=== PATIENT | male | born 1985 ===

== ENCOUNTER 2021-12-27 21:00 | Inpatient (IN) | payer MEDICAID, OTHER ==
[2021-12-27] MEDS ORDERED: MAG HYDROX/AL HYDROX/SIMETH 30 ML CUP PO PRN (21:09)
[2021-12-27] MEDS ORDERED: MAGNESIUM HYDROXIDE 2,400 MG/10 ML CUP PO PRN (21:09)
[2021-12-27] MEDS ORDERED: OLANZapine 5 MG TAB PO PRN (21:22)
[2021-12-27] MEDS ORDERED: OLANZapine 10 MG VIAL IM PRN (21:22)
[2021-12-28] MEDS ORDERED: hydrOXYzine HCL 50 MG/ML 1 ML VIAL IM PRN
--- NOTE | 2021-12-28 03:51 | P.CONS ---
History of Present Illness - Reason for Consult Consult date: 12/28/21 - History of Present Illness The patient is a 36-year-old male with a PMH of hypertension who had initially presented to [facility] with complaints of depression and suicidal ideation. The patient was subsequently transferred to [facility] where he was seen at the mental health unit. The patient reports that he feels better at the time of interview. He denied any physical complaints. He denied experiencing chest discomfort, shortness of breath, fever, chills, cough, nausea, vomiting, abdominal diarrhea. He reports recreational marijuana use. Denied any additional illicit substance use. Denied tobacco or alcohol use. Review of systems: Pertinent positives and negatives as discussed in HPI, a complete review of systems was performed and all other systems are negative. Physical examination: General: non toxic, no distress, appears at stated age, normal weight Derm: no unusual rashes/lesions, no unusual ecchymoses, warm, dry Head: atraumatic, normocephalic, symmetric Eyes: EOMI, no lid lag, anicteric sclera ENT: Nose and ears atraumatic, no thrush, no pharyngeal erythema Neck: trachea midline, supple Mouth: no lip lesion, mucus membranes moist Cardiovascular: S1S2 reg, no murmur, no edema Lungs: CTA bilateral, no rhonchi, no rales , no accessory muscle use Abdominal: soft, nontender to palpation, no guarding Ext: no gross muscle atrophy, no contractures, Neuro: No gross focal neuro deficits noted Psych: Alert, oriented, appropriate affect Assessment/plan Hypertension -Continue with home meds Marijuana abuse -Advised on importance of cessation Depression -As per psychiatry Thank you for allowing us to participate in the care of this patient. We will follow peripherally. Do not hesitate to contact us with questions. Someone can be reached from the [facility] hospitalist group at all hours of the day at [phone]. Past Medical History History of Any Multi-Drug Resistant Organisms: None Reported Past Psychological History: Bipolar, Schizophrenia Smoking Status: Vaper Past Alcohol Use History: None Reported Past Drug Use History: None Reported - Past Family History Father Family Medical History: Hypertension Medications and Allergies Allergies Allergy/AdvReac Type Severity Reaction Status Date / Time No Known Allergies Allergy Verified 12/27/21 21:06 Physical Exam Vitals: Vital Signs Temp Pulse Resp BP Pulse Ox 12/28/21 02:32 97.4 F L 82 18 133/86 99 12/28/21 02:26 97.4 F L 82 18 133/86 99 Intake and Output 12/27/21 12/27/21 12/28/21 14:59 22:59 06:59 Other: Weight 130 kg 104.9 kg
[2021-12-28 04:25] LABS: ALT 62 U/L (4-49); AST 64 U/L (17-59); African American GFR (CKD) >90 (>60 ml/min/1.73 sqM); Albumin 4.7 g/dL (3.5-5.0); Alkaline Phosphatase 93 U/L (38-126); Anion Gap 12 mmol/L; Basophils # (A) 0.1 k/uL (0-0.2); Basophils % (A) 1 %; Bilirubin,Unconjugated 0.6 mg/dL (0.0-1.1); Blood Urea Nitrogen 17 mg/dL (9-20); Calcium 9.5 mg/dL (8.4-10.2); Carbon Dioxide 25 mmol/L (22-30); Chloride 99 mmol/L (98-107); Eosinophils # (A) 0.2 k/uL (0-0.7); Eosinophils % (A) 2 %; Glucose 122 mg/dL (74-99); HCT 46.1 % (39.0-53.0); HGB 15.2 gm/dL (13.0-17.5); Lymphocytes # (A) 3.2 k/uL (1.0-4.8); Lymphocytes % (A) 32 %; MCH 29.7 pg (25.0-35.0); MCHC 32.9 g/dL (31.0-37.0); MCV 90.2 fL (80.0-100.0); Mean Platelet Volume 9.7; Monocytes # (A) 0.7 k/uL (0-1.0); Monocytes % (A) 7 %; Neutrophils # (A) 5.6 k/uL (1.3-7.7); Neutrophils % (A) 55 %; Non-African American GFR(CKD) >90 (>60 ml/min/1.73 sqM); Platelet Count 180 k/uL (150-450); Potassium 4.3 mmol/L (3.5-5.1); RBC 5.11 m/uL (4.30-5.90); RDW 13.4 % (11.5-15.5); Sodium 136 mmol/L (137-145); Total Bilirubin 0.6 mg/dL (0.2-1.3); Total Protein 7.4 g/dL (6.3-8.2); WBC 10.2 k/uL (3.8-10.6)
[2021-12-28 07:48] LABS: Glucose,Whole Blood 120 mg/dL (70-110)
[2021-12-28] MEDS: lisinopriL 5 MG TAB PO SCH (08:25)
[2021-12-28] MEDS: METOPROLOL SUCCINATE (ER) 100 MG TAB.ER.24H PO SCH ×2 (08:25→20:05)
[2021-12-28] MEDS: hydrOXYzine pamoate 25 MG CAP PO PRN ×3 (08:28→22:15)
[2021-12-28] MEDS: NICOTINE 14MG/24HR PATCH TRANSDERM SCH (08:29)
[2021-12-28] MEDS: ACETAMINOPHEN TAB 325 MG TAB PO PRN ×3 (08:31→23:48)
[2021-12-28] MEDS: metFORMIN 500 MG TAB PO SCH ×2 (08:57→16:49)
[2021-12-28 09:28] LABS: Chol/HDL Ratio 5.62 Ratio; LDL Cholesterol,Calculated 91.6 mg/dL (0.0-131.0)
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
[2021-12-28] MEDS: NICOTINE GUM (POLACRILEX) 2 MG GUM BUCCAL PRN ×3 (14:48→23:51)
[2021-12-28 17:56] LABS: Glucose,Whole Blood 124 mg/dL (70-110)
[2021-12-28] MEDS: VALPROIC ACID ORAL SOLN 250 MG/5 ML CUP PO SCH (20:05)
[2021-12-28 20:13] LABS: Glucose,Whole Blood 147 mg/dL (70-110)
[2021-12-28] MEDS ORDERED: QUEtiapine 200 MG TAB PO SCH (21:00)
[2021-12-28] MEDS ORDERED: OLANZapine 5 MG TAB PO SCH (21:00)
[2021-12-28] MEDS ORDERED: VALPROIC ACID ORAL SOLN 250 MG/5 ML CUP PO SCH (21:00)
[2021-12-28] MEDS: QUEtiapine 100 MG TAB PO SCH (21:02)
[2021-12-29] MEDS: NICOTINE GUM (POLACRILEX) 2 MG GUM BUCCAL PRN ×4 (05:00→21:45)
[2021-12-29] MEDS: hydrOXYzine pamoate 25 MG CAP PO PRN (05:00)
[2021-12-29] MEDS: ACETAMINOPHEN TAB 325 MG TAB PO PRN ×2 (05:00→16:40)
[2021-12-29 07:47] LABS: Glucose,Whole Blood 135 mg/dL (70-110)
[2021-12-29] MEDS: METOPROLOL SUCCINATE (ER) 100 MG TAB.ER.24H PO SCH ×2 (08:28→21:50)
[2021-12-29] MEDS: lisinopriL 5 MG TAB PO SCH (08:28)
[2021-12-29] MEDS: metFORMIN 500 MG TAB PO SCH ×2 (08:28→16:34)
[2021-12-29] MEDS: NICOTINE 14MG/24HR PATCH TRANSDERM SCH ×2 (09:06→09:59)
[2021-12-29] MEDS ORDERED: HALOPERIDOL LACTATE 5 MG/ML 1 ML VIAL IM STA (09:49)
[2021-12-29] MEDS ORDERED: LORazepam 2 MG/ML INJ IM STA (09:50)
[2021-12-29 10:48] LABS: Glucose,Whole Blood 113 mg/dL (70-110)
[2021-12-29] MEDS: LORazepam 1 MG TAB PO PRN (16:34)
[2021-12-29] MEDS: haloperidoL 5 MG TAB PO PRN (16:34)
--- NOTE | 2021-12-29 16:50 | P.PN ---
Progress Note - Text Progress Note Date: 12/29/21 Interval History: Patient was seen on the milieu. He is noted to be restless and following this provider. He was noted by staff to be agitated earlier this morning. He was demanding discharge yet the next minute he was open to being on Haldol when necessary. Patient is grandiose and reports that he has 33 degrees. He took only Seroquel 100 mg last night but was open to receiving Haldol today. Afterwards, he was noted to be somewhat calmer. He reports good appetite and poor sleep. Mental Status Exam: General Appearance: Patient appears to be stated age is alert difficult to redirect Behavior: Restless, agitated Speech: Pressured Mood/Affect: Mood is elevated; affect mood congruent Suicidality/Homicidality: Patient denies having any suicidal or homicidal ideation intent or plan. Perceptions: Patient is denying any auditory or visual hallucinations today. Though content/process: Tangential, grandiose Memory and concentration: Poor concentration. Memory is difficult to assess secondary to his davida Judgment and insight: Poor Assessment Schizoaffective disorder, bipolar type Cannabis use disorder Tobacco use disorder Opiate use disorder, in remission Plan: -Patient is admitted under voluntary status to MHU for stabilization of psychiatric symptoms and safety. Patient signed adult voluntary form and medication consent and is placed in patient's chart. -Continue Seroquel and Depakote. Will not increase due to elevated AST and ALT -Zyprexa and Vistaril PRN changed to Haldol and Ativan for agitation/aggression as patient is more agreeable to being on these -Of note, patient took a room number sign (which is a risk) and gave it to another patient. Staff and security searched all rooms and confiscated risky items as deemed appropriate. Patient placed on 1:1 during any activities and not to be given any sharp objects otherwise (diet also changed accordingly) -Motivational interviewing -Patient was informed of the risks, benefits and side effects of the medication and patient verbally consented to taking the medications. Patient signed med consent form and was placed in chart. -Internal Medicine consult to perform medical evaluation and physical. -NRT - nicotine patch -SW on board for discharge planning. Encourage patient to participate in groups to work on coping skills.
[2021-12-29 17:30] LABS: Glucose,Whole Blood 139 mg/dL (70-110)
[2021-12-29 20:03] LABS: Glucose,Whole Blood 166 mg/dL (70-110)
[2021-12-29] MEDS: VALPROIC ACID ORAL SOLN 250 MG/5 ML CUP PO SCH (21:42)
[2021-12-29] MEDS: QUEtiapine 100 MG TAB PO SCH (21:43)
[2021-12-30] MEDS: NICOTINE 14MG/24HR PATCH TRANSDERM SCH (04:37)
[2021-12-30] MEDS: NICOTINE GUM (POLACRILEX) 2 MG GUM BUCCAL PRN ×4 (04:37→19:28)
[2021-12-30] MEDS: LORazepam 1 MG TAB PO PRN ×2 (04:37→22:19)
[2021-12-30] MEDS: ACETAMINOPHEN TAB 325 MG TAB PO PRN ×3 (04:39→19:28)
[2021-12-30] MEDS: METOPROLOL SUCCINATE (ER) 100 MG TAB.ER.24H PO SCH ×2 (08:53→21:06)
[2021-12-30] MEDS: lisinopriL 5 MG TAB PO SCH (08:53)
[2021-12-30] MEDS: metFORMIN 500 MG TAB PO SCH ×2 (08:53→17:36)
--- NOTE | 2021-12-30 12:29 | P.PN ---
Progress Note - Text Progress Note Date: 12/30/21 Interval History: Patient was seen in the interview room. He is noted to be better hygiene and less tangential today. He reports taking his medications as directed and having slept 3-1/2 hours last night. Staff has also noticed him to be sleeping during the day yesterday. He states that he has been feeling better as a result. He was wondering if his medication could be increased. He requests a morning dose of Seroquel and morning dose of Depakote. Discussed that we need to get his rihcard er labs again and he is agreeable with this. Patient is also less grandiose and expresses understanding of the medication plan. He denies suicidal and homicidal ideation. He denies auditory and visual hallucinations. Mental Status Exam: General Appearance: Patient appears to be stated age is alert Behavior: Calmer, not restless Speech: Hyperverbal Mood/Affect: Mood is mildly elevated; affect mood congruent Suicidality/Homicidality: Patient denies having any suicidal or homicidal ideation intent or plan. Perceptions: Patient is denying any auditory or visual hallucinations today. Though content/process: Circumstantial Memory and concentration: Poor concentration. Memory is difficult to assess secondary to his davida Judgment and insight: Fair and improving Assessment Schizoaffective disorder, bipolar type Cannabis use disorder Tobacco use disorder Opiate use disorder, in remission Plan: -Patient is admitted under voluntary status to MHU for stabilization of psychiatric symptoms and safety. Patient signed adult voluntary form and medication consent and is placed in patient's chart. -Increase Seroquel to 100 mg qAM and continue 300 mg qHS -Will order liver panel and continue Depakote. -Zyprexa and Vistaril PRN changed to Haldol and Ativan for agitation/aggression as patient is more agreeable to being on these -Of note, on 12/29/21: atient took a room number sign (which is a risk) and gave it to another patient. Staff and security searched all rooms and confiscated risky items as deemed appropriate. Patient placed on 1:1 during any activities and not to be given any sharp objects otherwise (diet also changed accordingly) -Motivational interviewing -Patient was informed of the risks, benefits and side effects of the medication and patient verbally consented to taking the medications. Patient signed med consent form and was placed in chart. -Internal Medicine consult to perform medical evaluation and physical. -NRT - nicotine patch -SW on board for discharge planning. Encourage patient to participate in groups to work on coping skills.
[2021-12-30] MEDS: QUEtiapine 100 MG TAB PO SCH ×2 (12:34→21:06)
[2021-12-30 12:44] LABS: Glucose,Whole Blood 100 mg/dL (70-110)
[2021-12-30 13:34] LABS: Albumin 4.8 g/dL (3.5-5.0); Bilirubin, Delta 0.1 mg/dL (0.0-0.2); Bilirubin,Unconjugated 0.5 mg/dL (0.0-1.1); Total Bilirubin 0.6 mg/dL (0.2-1.3); Total Protein 7.4 g/dL (6.3-8.2)
[2021-12-30] MEDS: HALOPERIDOL LACTATE 5 MG/ML 1 ML VIAL IM PRN (14:23)
[2021-12-30] MEDS: LORazepam 2 MG/ML INJ IM PRN (14:24)
[2021-12-30 17:42] LABS: Glucose,Whole Blood 151 mg/dL (70-110)
[2021-12-30 20:03] LABS: Glucose,Whole Blood 112 mg/dL (70-110)
[2021-12-30] MEDS: VALPROIC ACID ORAL SOLN 250 MG/5 ML CUP PO SCH (21:07)
[2021-12-30] MEDS: haloperidoL 5 MG TAB PO PRN (22:19)
[2021-12-31] MEDS: ACETAMINOPHEN TAB 325 MG TAB PO PRN ×4 (03:47→20:06)
[2021-12-31] MEDS: NICOTINE GUM (POLACRILEX) 2 MG GUM BUCCAL PRN ×4 (03:48→20:07)
[2021-12-31] MEDS: metFORMIN 500 MG TAB PO SCH ×2 (08:01→17:38)
[2021-12-31] MEDS: HALOPERIDOL LACTATE 5 MG/ML 1 ML VIAL IM PRN (08:47)
[2021-12-31] MEDS: LORazepam 2 MG/ML INJ IM PRN (08:47)
[2021-12-31] MEDS: METOPROLOL SUCCINATE (ER) 100 MG TAB.ER.24H PO SCH ×2 (09:06→20:07)
[2021-12-31] MEDS: QUEtiapine 100 MG TAB PO SCH ×2 (09:06→20:06)
[2021-12-31] MEDS: lisinopriL 5 MG TAB PO SCH (09:07)
[2021-12-31] MEDS: NICOTINE 14MG/24HR PATCH TRANSDERM SCH (09:07)
[2021-12-31] MEDS ORDERED: chlorproMAZINE 25 MG TAB PO PRN (09:33)
[2021-12-31] MEDS ORDERED: chlorproMAZINE 25 MG/ML 1 ML AMP IM PRN (11:26)
--- NOTE | 2021-12-31 11:29 | P.PN ---
Progress Note - Text Progress Note Date: 12/31/21 Interval History: Patient was seen wandering the hallways and was directable and agreeable to speak with technical publications writer in the office. The patient has had episodes of agitation while on the unit has been quite oppositional with staff. He did require the administration of when necessary medications due to agitated behavior including punching his door. Despite his behaviors, the patient has not displayed any other manic or psychotic symptoms. He is currently not reporting any delusional thought content. He is denying any auditory or visual hallucinations. He reports no suicidal or homicidal ideation, intention, and/or plan. He reports that he only wants to take the medications when he wants it and how he wants to take them. He otherwise has been in adherent with his medications. He is agreeable with increasing his Depakote as well as Seroquel. He is not reporting any significant side effects of his medications. Mental Status Exam: General Appearance: Patient appears to be stated age is alert, directable, and cooperative. Behavior: Patient is calmly seated without any agitated behavior. Speech: Patient's speech is fluent and nonpressured. Mood/Affect: Mood is "feeling really good." Affect is congruent is expansive. Suicidality/Homicidality: Patient denies having any suicidal or homicidal ideation intent or plan. Perceptions: Patient denies any visual hallucinations and denies any auditory hallucinations Though content/process: There is no evidence of any delusional thought content and thought process is linear and goal-directed. Oppositional. Narcissistic. Memory and concentration: AOX3, grossly intact for the purposes of this session Judgment and insight: Poor Vital Signs Temp 97.5 F L 12/31/21 03:53 Pulse 81 12/31/21 03:53 Resp 18 12/31/21 03:53 BP 123/75 12/31/21 03:53 Pulse Ox 99 12/30/21 04:37 FiO2 Intake & Output 12/30/21 12/31/21 12/31/21 18:59 06:59 18:59 Weight 104.8 kg Laboratory Results - Last 24 Hours 12/30/21 12/30/21 12/30/21 12:39 13:00 17:39 POC Glucose (mg/dL) 100 151 H POC Glu Tomato Grader ID Portia Brooke Desiree Total Bilirubin 0.6 Conjugated Bilirubin 0.0 Unconjugated Bilirubin 0.5 Delta Bilirubin 0.1 AST 56 ALT 53 H Alkaline Phosphatase 97 Total Protein 7.4 Albumin 4.8 12/30/21 20:02 POC Glucose (mg/dL) 112 H POC Glu Tomato Grader ID Hemant Patten Total Bilirubin Conjugated Bilirubin Unconjugated Bilirubin Delta Bilirubin AST ALT Alkaline Phosphatase Total Protein Albumin Assessment Schizoaffective disorder, bipolar type Cannabis use disorder Tobacco use disorder Opiate use disorder, in remission Plan: -Patient continues to meet criteria for inpatient psychiatric admission for symp jammie stabilization and safety. Patient has signed adult voluntary form and medication consent and was placed in patient's chart. -Medications: Increase Depakote to 250 mg by mouth every morning and 750 mg by mouth at bedtime for mood stabilization Increase Seroquel to 100 mg by mouth every morning and 300 mg by mouth at bedtime for mood stabilization -When necessary Thorazine and Ativan for agitation/aggression. -NRT - nicotine patch and nicorette gum -SW on board for discharge planning. Encouraged the patient to participate in milieu.
[2021-12-31 12:58] LABS: Glucose,Whole Blood 106 mg/dL (70-110)
[2021-12-31 16:46] VITALS: RESP 16
[2021-12-31] MEDS: LORazepam 1 MG TAB PO PRN (16:46)
[2021-12-31] MEDS: chlorproMAZINE 25 MG TAB PO PRN (16:46)
[2021-12-31 17:38] LABS: Glucose,Whole Blood 99 mg/dL (70-110)
[2021-12-31] MEDS: VALPROIC ACID ORAL SOLN 250 MG/5 ML CUP PO SCH (20:06)
[2022-01-01] MEDS: LORazepam 1 MG TAB PO PRN (02:57)
[2022-01-01] MEDS: chlorproMAZINE 25 MG TAB PO PRN (02:57)
[2022-01-01] MEDS: ACETAMINOPHEN TAB 325 MG TAB PO PRN ×2 (02:58→07:50)
[2022-01-01] MEDS: NICOTINE GUM (POLACRILEX) 2 MG GUM BUCCAL PRN ×2 (02:59→07:51)
[2022-01-01 07:09] VITALS: TEMP 96.4
[2022-01-01 07:38] LABS: Glucose,Whole Blood 122 mg/dL (70-110)
[2022-01-01] MEDS: metFORMIN 500 MG TAB PO SCH (07:51)
[2022-01-01] MEDS: VALPROIC ACID ORAL SOLN 250 MG/5 ML CUP PO SCH ×2 (09:44→11:22)
[2022-01-01] MEDS: METOPROLOL SUCCINATE (ER) 100 MG TAB.ER.24H PO SCH (09:45)
[2022-01-01] MEDS: lisinopriL 5 MG TAB PO SCH (09:46)
[2022-01-01] MEDS: NICOTINE 14MG/24HR PATCH TRANSDERM SCH (09:46)
[2022-01-01] MEDS: QUEtiapine 100 MG TAB PO SCH (09:46)
[2022-01-01 09:50] VITALS: BP 135/85; PULSE 95
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
== END 2022-01-01 11:53 | disposition home or self-care (01) | DRG 885 ==
LOC: 3MHU 12-28 01:48
PROVIDERS: ADMIT Psychiatry & Neurology Psychiatry; ATTEND Psychiatry & Neurology Psychiatry
DX: F25.0 Schizoaffective disorder, bipolar type (principal); R45.851 Suicidal ideations; F12.90 Cannabis use, unspecified, uncomplicated; F41.9 Anxiety disorder, unspecified; F60.81 Narcissistic personality disorder; I10 Essential (primary) hypertension; Z62.810 Personal history of physical and sexual abuse in childhood; Z72.0 Tobacco use; Z79.899 Other long term (current) drug therapy
CPT/HCPCS: 80053; 80061; 80076; 82248; 82550; 82553; 83036; 84443; 85025